=== PATIENT | male | born 1980 | race African-American/Black ===

== ENCOUNTER 2025-03-09 23:35 | Emergency (ER) | payer MEDICAID, SELFPAY ==
[2025-03-09 23:48] VITALS: BMI 26.9
[2025-03-09 23:51] VITALS: BP 177/107; PULSE 102; RESP 14; TEMP 37; O2SAT 99
--- NOTE | 2025-03-09 23:54 | XR_ITS ---
EXAMINATION: Right shoulder 2 views TECHNIQUE: AP internal rotation Y-view right shoulder 2 views Date and time: March 09, 2025, 11:58 p.m. INDICATIONS: Onset shoulder pain today. FINDINGS: Acute comminuted fractures humeral neck with mild impaction Acute fractures humeral head involving the greater tuberosity with mild offset of the greater tuberosity No shoulder dislocation IMPRESSION: Acute fractures humeral head and neck
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
[2025-03-10] MEDS: HYDROcodone/APAP 5/325 TABLET 1 TAB PO (00:20)
== END 2025-03-10 01:12 ==
LOC: SERX 03-10 00:48
PROVIDERS: Emergency Provider Emergency Medicine; PCP Family Medicine
DX: S42.291A Other displaced fracture of upper end of right humerus, initial encounter for closed fracture (principal); E11.9 Type 2 diabetes mellitus without complications; I10 Essential (primary) hypertension; W19.XXXA Unspecified fall, initial encounter
CPT/HCPCS: 73030; 99282; A9270